=== PATIENT | male | born 1965 | race Two or more races ===

== ENCOUNTER 2021-09-11 09:08 | Inpatient (IN) | payer OTHER ==
[~2021-09-11] VITALS: Ht 180.3 cm; Wt 108.9 kg
[2021-09-11] MEDS ORDERED: SIMVASTATIN5 MG (09:16)
[2021-09-11] MEDS ORDERED: AMLODIPINE-OLM1 EAC2 (09:17)
[2021-09-11] MEDS ORDERED: LOSARTAN POTASS50 MG (09:17)
[2021-09-11] MEDS ORDERED: GLUMETZA1000 MG (09:17)
[2021-09-11] MEDS ORDERED: GLIPIZIDE XL10 MG (09:17)
[2021-09-12] MEDS ORDERED: HYDROCHLOROTH12.5 MG (07:55)
[2021-09-15] MEDS ORDERED: SIMVASTATIN10 MG PO (12:10)
[2021-09-15] MEDS ORDERED: Procardia Xl 30MG TA PO (12:10)
[2021-09-15] MEDS ORDERED: LOSARTAN POTAS100 MG PO (12:10)
[2021-09-15] MEDS ORDERED: METOPROLOL TART75 MG PO (12:10)
[2021-09-15] MEDS ORDERED: ELIQUIS5 MG PO (12:10)
== END 2021-09-15 13:33 | disposition home or self-care (01) | DRG 309 ==
LOC: ER 09:08 → MEDI 18:02 → MEDJ 21:02 → MEDI 21:11
PROVIDERS: ADMIT Internal Medicine; ATTEND Internal Medicine
PROC: B246YZZ Ultrasonography of Right and Left Heart using Other Contrast (ICD-10-PCS; principal; 2021-09-11)
PROC: 4A12X4Z Monitoring of Cardiac Electrical Activity, External Approach (ICD-10-PCS; 2021-09-12)
PROC: BB24Y0Z Computerized Tomography (CT Scan) of Bilateral Lungs using Other Contrast, Unenhanced and Enhanced (ICD-10-PCS; 2021-09-14)
DX: I48.0 Paroxysmal atrial fibrillation (principal); I24.9 Acute ischemic heart disease, unspecified; I10 Essential (primary) hypertension; R00.2 Palpitations; E11.9 Type 2 diabetes mellitus without complications; Z79.4 Long term (current) use of insulin; Z20.822 Contact with and (suspected) exposure to COVID-19
CPT/HCPCS: 71275